=== PATIENT | male | born 1965 | race Caucasian/White ===

== ENCOUNTER 2020-02-05 16:19 | Emergency (ER) | payer BC, SELFPAY ==
[2020-02-05 16:34] VITALS: BP 156/81; PULSE 101; RESP 20; TEMP 36.9; O2SAT 97
--- NOTE | 2020-02-05 16:48 | ED.URI ---
HPI - URI/Sore Throat General Chief Complaint: Upper Respiratory Infection Stated Complaint: cough Time Seen by Provider: 02/05/20 16:38 Source: patient and RN notes reviewed Mode of arrival: ambulatory Limitations: no limitations History of Present Illness HPI Narrative: Patient presents today with a 5-week history of cough. Reports initially he had cold symptoms such as congestion, rhinorrhea. All of his other cold symptoms have resolved, but the cough persists. He occasionally will cough up mucus. Denies shortness of breath. He has been taking Vicks at home with some relief. He has also tried Robitussin without relief. No history of asthma or COPD. He is a non-smoker. MD elicited complaint: cough Related Data Allergies Allergy/AdvReac Type Severity Reaction Status Date / Time Penicillins Allergy Mild Verified 12/09/12 10:48 Review of Systems Review of Systems: Narrative: CONSTITUTIONAL: Denies body aches, fever, chills, or sweats. EYES: Denies visual changes, redness, or discharge. ENT: Denies rhinorrhea, congestion, sore throat, or otalgia. CARDIOVASCULAR: Denies chest pain, palpitations, or edema. RESPIRATORY: Denies dyspnea.+ Cough GASTROINTESTINAL: Denies abdominal pain, nausea, vomiting, or diarrhea. GENITOURINARY: Denies dysuria or hematuria. SKIN: Denies rash, itching, or wounds. MUSCULOSKELETAL: Denies back pain, joint pain, or myalgia. NEUROLOGIC: Denies headache, numbness, tingling, or weakness. PSYCH: Denies depression or anxiety. PMFSH Social History Social History Gender identity (if verbalized by the patient): Male Comments At time of signature, I have reviewed and agree with nursing past medical, surgical, social and family history unless otherwise noted. Please see nursing chart for further information. There is no relevant family history pertinent to the presenting complaint Exam Narrative: Exam Narrative: GENERAL: Well-appearing, well-nourished, and in no acute distress. HEAD: Normocephalic, atraumatic. EYES: EOMI. No redness or drainage. Conjunctivae normal. ENT: Mucous membranes pink and moist. Nares clear. No rhinorrhea. TMs normal bilaterally. Throat normal. Uvula midline. NECK: Normal AROM. Supple. No lymphadenopathy. CHEST: No respiratory distress. Clear to auscultation. HEART: Regular rate and rhythm. No murmur appreciated. Normal peripheral pulses. EXTREMITIES: Normal range of motion. No edema. SKIN: Warm, dry, no rash. NEURO: No focal deficits. Alert and oriented x3. Gait steady. PSYCH: Normal affect. No signs of depression or anxiety. Course Vital Signs Vital signs: Vital Signs Temperature 98.5 F 02/05/20 16:34 Pulse Rate 101 H 02/05/20 16:34 Respiratory Rate 20 02/05/20 16:34 Blood Pressure 156/81 H 02/05/20 16:34 Pulse Oximetry 97 02/05/20 16:34 Temperature 98.5 F 02/05/20 16:34 Pulse Rate 101 H 02/05/20 16:34 Respiratory Rate 20 02/05/20 16:34 Blood Pressure 156/81 H 02/05/20 16:34 Pulse Oximetry 97 02/05/20 16:34 Reviewed. Pt has been instructed to follow up with his PCP regarding his elevated blood pressure today. MDM - URI/Sore Throat Differential Diagnosis Differential diagnosis: Likely upper respiratory infection, viral infection and bronchitis Critical Care Time Critical Care Time Critical Care Time: No Discharge Plan Discharge Clinical Impression: Bronchitis Patient Disposition: Home, Self-Care Condition: Stable Instructions: Acute Bronchitis (ED) Additional Instructions: Your symptoms are likely due to bronchitis. Please take the prednisone and Cheratussin as directed. Do not drive within 6 hours of taking the Cheratussin as it can make you drowsy. Wait till tomorrow morning to start the prednisone as it can keep you awake at night. Follow-up with your PCP in 1 week if symptoms are not improving. Your blood pressure was elevated above 120/80 today at Urgent Care. This puts you above the thre
== END 2020-02-05 16:53 | disposition home or self-care (01) ==
PROVIDERS: Emergency Provider Nurse Practitioner
DX: J40 Bronchitis, not specified as acute or chronic (principal)
CPT/HCPCS: 99213; G0463

== ENCOUNTER 2020-05-26 15:20 | Outpatient (CLI) | payer BC, SELFPAY ==
--- NOTE | ~2020-05-26 | XR_ITS ---
EXAMINATION: XR chest 2V 05/26/2020 15:39 INDICATION: Cough for several months PROCEDURE: 2 view chest COMPARISON: No prior studies FINDINGS: The lungs are clear. The cardiomediastinal silhouette is within normal limits. There are no pleural effusions. There is no pneumothorax suspected. IMPRESSION: 1: NO ACUTE CARDIOPULMONARY DISEASE. Reviewed, dictated and finalized at location A.
== END 2020-05-26 15:21 | disposition home or self-care (01) ==
LOC: ANHIMG 15:23
PROVIDERS: PCP Family Medicine; Visit Provider Family Medicine
DX: R05 Cough (principal)
CPT/HCPCS: 71046

== ENCOUNTER 2020-06-16 01:18 | Outpatient (CLI) | payer BC, SELFPAY ==
[2020-06-16 19:25] LABS: SARS-CoV-2 RNA PCR Negative
== END 2020-06-16 01:19 | disposition home or self-care (01) ==
LOC: ANHCOVIDDT 01:18
PROVIDERS: PCP Family Medicine; Visit Provider Internal Medicine Gastroenterology
DX: Z01.812 Encounter for preprocedural laboratory examination (principal); Z11.59 Encounter for screening for other viral diseases
CPT/HCPCS: 87635; C9803; U0003

== ENCOUNTER 2020-06-18 01:38 | Day surgery (SDC) | payer BC, SELFPAY ==
[2020-06-10 14:22] VITALS: BMI 31.5
--- NOTE | 2020-06-18 06:50 | WPDANESEPPF ---
Anes - Initial Pre Proc Eval Procedure: Operation Date: 06/18/20 08:00 Proposed Procedures p Screening Colonoscopy - Magdaleno Duncan MD Date/Time: 06/18/20 06:50 Surgeon: Magdaleno Duncan MD Pre Op Diagnosis: neoplasm screening, hx of polyps Patient Data Age: 55 Gender: M Height: 5 ft 8 in Weight: 94 kg Allergies Allergy/AdvReac Type Severity Reaction Status Date / Time Penicillins Allergy Mild Unknown Verified 06/18/20 06:44 Home Medications Medication Instructions Recorded Confirmed Type fluticasone 250 mcg-salmeterol 50 1 inhalation INHALATION BID #60 05/27/20 06/18/20 Rx mcg/dose blistr powdr for each inhalation Patient hx anesthesia problems: none Family hx anesthesia problems: none PMFSH Past Medical History Medical History GERD (gastroesophageal reflux disease) Family History Family History Son Asthma Mother Hypertension Father Diabetes mellitus Heart disease Social History Social History Smoking status: Never smoker Alcohol intake: current Drinks per week: 1 Substance use: never Substance use type: does not use Gender identity (if verbalized by the patient): Male Anes - Eval Final PreProcedure Day of Procedure 06/18/20 06:50 Patient weight: obese Heart: regular rate and rhythm Lungs: clear to auscultation Airway: Mallampati scale class II Neurological: alert and oriented Last oral intake: >/= 8 hours ASA classification: II Emergent: no Anesthetic plan: proceed Anesthesia type and monitoring: general GIVS and standard monitoring Informed Consent: The patient's anesthetic plan and its attendant risks and benefits were discussed with the patient/family/POA. Questions were solicited and answers provided to the satisfaction of the patient/family/POA.
[2020-06-18] MEDS: LACTATED RINGERS 1,000 ML 150 ML IV CONT (06:59)
--- NOTE | 2020-06-18 07:01 | PM.HPGS ---
History of Present Illness History of Present Illness Consent: Risks, benefits, and alternatives have been discussed and questions answered. Patient agrees to proceed with procedure. Chief complaint: neoplasm screening, hx of polyps Narrative: Devon Lang is a 55 year old W male referred for screening colonoscopy. patient states he had a colonoscopy 5 years ago at another institution at polyp was removed at that time. No family history of colon polyps or colon cancer. Patient is asymptomatic. [facility] Past Medical History Medical History GERD (gastroesophageal reflux disease) Family History Family History Son Asthma Mother Hypertension Father Diabetes mellitus Heart disease Social History Social History Smoking status: Never smoker Alcohol intake: current Drinks per week: 1 Substance use: never Substance use type: does not use Gender identity (if verbalized by the patient): Male Meds Home Medications and Allergies Home Medications Medication Instructions Recorded Confirmed Type fluticasone 250 mcg-salmeterol 50 1 inhalation INHALATION BID #60 05/27/20 06/18/20 Rx mcg/dose blistr powdr for each inhalation Allergies Allergy/AdvReac Type Severity Reaction Status Date / Time Penicillins Allergy Mild Unknown Verified 06/18/20 06:44 Exam Const: Orientation/consciousness: patient oriented x3 Resp: Auscultation: clear to auscultation bilaterally Cardio: Rate: regular rate Rhythm: regular rhythm Heart sounds: no murmurs GI: GI Palp: Yes Soft to palpation, No Tenderness to palpation present (GI), Yes No hepatosplenomegaly present and No Palpable mass present Auscultation: normal bowel sounds Neuro: General: patient oriented x3 and no focal motor deficits Extrem: General: no pedal edema Assessment and Plan Additional Plan Screening colonoscopy secondary history of colonic polyps
[2020-06-18] MEDS: SIMETHICONE ORAL SUSPENSION 20 MG/0.3 ML 30 ML BOTTLE 0.6 ML IRRIGATION (08:04)
[2020-06-18 08:12] VITALS: BP 121/86; PULSE 88; RESP 20; O2SAT 96
[2020-06-18 08:22] VITALS: BP 117/85; PULSE 89; RESP 20; O2SAT 96
[2020-06-18 08:32] VITALS: BP 145/99; PULSE 76; RESP 20; O2SAT 99
== END 2020-06-18 08:44 | disposition home or self-care (01) ==
PROVIDERS: PCP Family Medicine; Visit Provider Internal Medicine Gastroenterology
PROC: 0DJD8ZZ Inspection of Lower Intestinal Tract, Via Natural or Artificial Opening Endoscopic (ICD-10-PCS; CPT 45378; principal; 2020-06-18 08:00)
DX: Z12.11 Encounter for screening for malignant neoplasm of colon (principal); K57.30 Diverticulosis of large intestine without perforation or abscess without bleeding; K64.8 Other hemorrhoids; Z86.010 Personal history of colon polyps; E66.9 Obesity, unspecified; Z68.32 Body mass index [BMI] 32.0-32.9, adult
CPT/HCPCS: 45378; J2704; J7120

== ENCOUNTER 2020-06-30 10:25 | Outpatient (CLI) | payer BC, SELFPAY ==
--- NOTE | ~2020-06-30 | US_ITS ---
EXAMINATION: US right upper quadrant DATE: 06/30/2020 11:05 INDICATION: Abnormal levels of other serum enzymes TECHNIQUE: Multiple grayscale and Doppler ultrasound images of the abdomen were obtained. COMPARISON: None available FINDINGS: Bowel gas obscures visualization of the pancreas. The visualized portions of the pancreas a re unremarkable. The liver is normal with normal echogenicity and echotexture. No surface nodularity. Normal hepatopetal flow in the main portal vein. The gallbladder is normal with no abnormal wall thi ckening, pericholecystic fluid or stones. The normal common bile duct measures 5 mm. There was no son ographic Mei sign. IMPRESSION: 1. No sonographic correlate for the patient's symptoms. Reviewed, dictated and finalized at location A.
== END 2020-06-30 10:26 | disposition home or self-care (01) ==
PROVIDERS: PCP Family Medicine; Visit Provider Physician Assistant
DX: R74.8 Abnormal levels of other serum enzymes (principal)
CPT/HCPCS: 76705

== ENCOUNTER 2024-02-10 08:02 | Emergency (ER) | payer BC, SELFPAY ==
--- NOTE | ~2024-02-10 | XR_ITS ---
EXAMINATION: XR thoracic spine 3V DATE: 02/10/2024 08:34 INDICATION: Mid to upper back pain post fall TECHNIQUE: One AP, lateral and lateral swimmer's views of the thoracic spine were obtained. COMPARISON: None. FINDINGS: 6 degrees upper thoracic levocurvature and 3 mm lower thoracic dextrocurvature. Sagittal alignment is normal. Vertebral body heights are normal. Disc heights are normal. Visualized portion of the lungs are clear. Heart size is normal. IMPRESSION: 1. Negligible S-shaped curvature of the thoracic spine. No evident acute osseous abnormality. Reviewed, dictated and finalized at location A. IMPRESSION: 1. Negligible S-shaped curvature of the thoracic spine. No evident acute osseou s abnormality.
[2024-02-10 08:23] VITALS: BP 138/96; PULSE 72; RESP 16; TEMP 36.5; O2SAT 99
--- NOTE | 2024-02-14 08:19 | ED.BACK ---
HPI - Back Pain/Injury General Chief Complaint: Back Pain/Injury Stated Complaint: middle back rg; previous fall Time Seen by Provider: 02/10/24 08:16 Source: patient Mode of arrival: ambulatory Limitations: no limitations History of Present Illness HPI Narrative: 58 yo M presents with c/o pain to middle of back. States he fell over a month about after slipping on ice. Feet went out from under him and landed flat on back. Denies hitting head. States his whole back was sore after fall. He iced and applied heat and took ibuprofen and pain got better except to one spot in middle of back. he states he works out, is active and has been going to work so pain is not that bad but wants to make sure no fracture since this one area is still bothering him. He also states if he puts pressure against middle of back that pain is relieved. Ambulatory with steady gait. No radiation of pain. Denies numbness, tingling or weakness to extremitiies. has appt with his PCP next month. All systems reviewed and negative except as noted above. Related Data Home Medications Medication Instructions Recorded Confirmed No Home Medications 02/10/24 02/10/24 Allergies Allergy/AdvReac Type Severity Reaction Status Date / Time Penicillins Allergy Mild Unknown Verified 02/10/24 08:21 Review of Systems Review of Systems: CONSTITUTIONAL: Denies fever, chills, or sweats. EYES: Denies visual changes, redness, or discharge. ENT: Denies rhinorrhea, congestion, sore throat, or otalgia. CARDIOVASCULAR: Denies chest pain, palpitations, or edema. RESPIRATORY: Denies cough or dyspnea. GASTROINTESTINAL: Denies abdominal pain, nausea, vomiting, or diarrhea. GENITOURINARY: Denies dysuria or hematuria. SKIN: Denies rash or itching. MUSCULOSKELETAL: Reports pain to middle of back. Denies joint pain, or myalgia. NEUROLOGIC: Denies headache, numbness, or weakness. PSYCHIATRIC: Denies anxiety or depression. All other systems reviewed are negative, except as documented in HPI. [facility] Past Medical History Medical History GERD (gastroesophageal reflux disease) HLD (hyperlipidemia) Impaired fasting glucose Family History Family History Son Asthma Mother Hypertension Alzheimer disease Father Diabetes mellitus Heart disease Social History Social History Smoking status: Never smoker Second hand tobacco smoke exposure: No Alcohol intake: current Drinks per week: 1 Substance use: never Substance use type: does not use Living arrangements: with family Occupation/Education: occupation Gender identity (if verbalized by the patient): Male Sexual Orientation (if Verbalized by the Patient): Straight or Heterosexual Spiritual care concerns: No Comments At time of signature, agree with nursing past medical, surgical, social and family history. There is no relevant family history pertinent to the presenting complaint. Exam Narrative: GENERAL: This is a well-nourished, well-developed patient, in no apparent distress. HEAD: normocephalic, atraumatic. EYES: PERRL. Sclera clear/white. Vision is grossly intact. EARS: External ears normal NOSE: External nose normal NECK: Neck supple, non-tender without lymphadenopathy, masses or thyromegaly. CARDIOVASCULAR: Regular rate and rhythm without murmurs, gallops, or rubs. RESPIRATORY: Clear to auscultation. Breath sounds equal bilaterally. No wheezes, rales, or rhonchi. SKIN: warm, Dry, intact with no suspicious lesions or rash, good texture and turgor. NEURO: awake, alert, and oriented to person, place and time. There were no obvious focal neurologic abnormalities. EXTREMITIES: No joint tenderness, effusion, or edema noted. BACK: no deformity. tenderness T6-T8. no swelling. Course Course Level of Care: Expres
== END 2024-02-10 08:55 | disposition home or self-care (01) ==
PROVIDERS: Emergency Provider Nurse Practitioner Family; PCP Family Medicine
DX: M54.6 Pain in thoracic spine (principal); K21.9 Gastro-esophageal reflux disease without esophagitis; E78.5 Hyperlipidemia, unspecified; R73.01 Impaired fasting glucose
CPT/HCPCS: 72072; 99213; G0463

== ENCOUNTER 2025-04-18 09:08 | Outpatient (CLI) | payer BC, SELFPAY ==
--- NOTE | ~2025-04-18 | XR_ITS ---
Left Shoulder Technique: AP and axillary views were obtained. Clinical History: Pain Findings: No fracture or dislocation is seen. Osseous alignment is anatomic. The glenohumeral and acr omioclavicular joint spaces are preserved. Soft tissues are unremarkable. Impression: Unremarkable left shoulder radiographs. Reviewed, dictated and finalized at [facility]. Impression: Unremarkable left shoulder radiographs.
== END 2025-04-18 09:09 | disposition home or self-care (01) ==
PROVIDERS: PCP Family Medicine; Visit Provider Physician Assistant Medical
DX: M25.512 Pain in left shoulder (principal)
CPT/HCPCS: 73030

== ENCOUNTER 2025-05-29 14:30 | Outpatient (RCR) | payer BC, SELFPAY ==
--- NOTE | 2025-04-28 10:57 | OPREHPOC ---
Outpatient Therapy Plan of Care This is a Multidisciplinary Plan of Care that may contain components documented by all disciplines (PT, OT, and ST.) PT Problem 1 PT Problem #1 Knowledge Deficit PT Goal 1 Goal / Goal Update 1* independent with HEP 2* pt demonstrate correct shoulder posture with exercises Target Visit 8 PT Problem 2 PT Problem #2 Pain PT Goal 1 Goal / Goal Update 1* pt report pain rating at worst of L shoulder 10 2* pt report times of NO pain in L shoulder Target Visit 8 PT Problem 3 PT Problem #3 Impaired Flexibility PT Goal 1 Goal / Goal Update increase L shoulder ROM/flexibility, to improve use of L arm for overhead activities at home and self care in standing active 1* flexion to 140' 2* abduction to 140' 3* IR- reaching behind back, fingers to distal scapula Target Visit 8 PT Problem 4 PT Problem #4 Impaired Strength PT Goal 1 Goal / Goal Update increase scapular strength to 4+/5, to improve stability to shoulder and posture of GH joint Target Visit 8
--- NOTE | 2025-04-28 10:57 | PTOPEVAL1 ---
Assessment and note entered by Maya Gruber PT Evaluation Information Assessment Status Evaluation ICD-10 Condition Codes (PT) Pain in left shoulder M25.512 Onset 6 months ago Subjective Information have had problems for the past 3 years with shoulder, worse and decided to talk with dr about it; no trauma to arm; was having more pain with more fitness and weight work outs; able to do things but hurts x ray was negative; R hand dominant; activity: retired; can do all home tasks, with more pain GOAL: get the motion back of my shoulder and return to lifting weights Reported Pain Level Pain Score Self Report Additional Pain Score Comments pain range in the past week: 1-5/10; achy in shoulder; increase pain: lifting weights, lie on shoulder decrease pain: rest, ibuprofen PRN with sleeping: no awakening due to shoulder pain Assessment PT Clinical Summary Devon has the diagnosis of L shoulder pain. He is R hand dominant and self assessment with Quick DASH rating of 14% limitation in activity level. Reports gradual increase in pain and less flexibility of shoulder, with doing more fitness exercises and lifting weights. He is retired and active lifestyle. X ray of the shoulder is negative. With the evaluation: he has decreased ROM and increase pain with all L shoulder motions; slight tenderness over anterior GH joint; posture with rounded shoulders and forward head. Skilled PT services are indicated for treatment of L shoulder impingement syndrome: modalities to decrease pain, therapeutic exercises to increase scapular strength and posture with education for HEP and posture/body mechanics. Plan of Care Interventions Electrical Stimulation,Hot Pack/Cold Pack,Manual Therapy,Neuro Re-education,Patient/Caregiver Education,Therapeutic Activities,Therapeutic Exercise,Ultrasound,Other Other Interventions taping, PT Services Indicated Yes Treatment Frequency and 1-2x/wk for 8 visits Duration These treatments will address the objective and functional deficits as defined above. The patient will be advanced safely and appropriately in order for the patient to progress towards his/her prior level of function. Additional exercises will be introduced and as well as a comprehensive home exercise program upon discharge, if needed, ?to ensure carryover of functional gains achieved in the clinic. This treatment plan has been reviewed and agreement upon by the patient.
--- NOTE | 2025-05-29 15:12 | OPREHPOC ---
Outpatient Therapy Plan of Care This is a Multidisciplinary Plan of Care that may contain components documented by all disciplines (PT, OT, and ST.) PT Problem 1 PT Problem #1 Knowledge Deficit PT Goal 1 Goal / Goal Update 1* independent with HEP 2* pt demonstrate correct shoulder posture with exercises 05-29-25 d/c goals met Target Visit 8 Progress Met PT Problem 2 PT Problem #2 Pain PT Goal 1 Goal / Goal Update 1* pt report pain rating at worst of L shoulder 2* pt report times of NO pain in L shoulder 05-29-25 d/c goals met Target Visit 8 Progress Met PT Problem 3 PT Problem #3 Impaired Flexibility PT Goal 1 Goal / Goal Update increase L shoulder ROM/flexibility, to improve use of L arm for overhead activities at home and self care in standing active 1* flexion to 140' 2* abduction to 140' 3* IR- reaching behind back, fingers to distal scapula 05-29-25 d/c goals met Target Visit 8 Progress Met PT Problem 4 PT Problem #4 Impaired Strength PT Goal 1 Goal / Goal Update increase scapular strength to 4+/5, to improve stability to shoulder and posture of GH joint 05-29-25 d/c goals met Target Visit 8
--- NOTE | 2025-05-29 15:12 | PTOPDC ---
Assessment and note entered by Maya Gruber, PT Evaluation Information Assessment Status Discharge ICD-10 Condition Codes (PT) Pain in left shoulder M25.512 Onset 6 months ago Subjective Information shoulder has more motion in it; have been doing the exercises at home; ready to be finished with therapy. have been watching my posture and avoided doing resistance exercises of bench press and overhead pull downs; Reported Pain Level Pain Score Self Report Additional Pain Score Comments pain range in the past week: 0-3/10 with daily activities at home increase pain: with resisted exercises at gym lifting overhead decrease pain: rest, ibuprofen PRN can lie on L side, Assessment PT Clinical Summary Devon has received 8 PT sessions. He has improved in all areas, today reports: pain range of 0-3/10; self assessment with Quick DASH rating of 9% limitation in activity level; increased ROM and strength of L shoulder and education completed for HEP, posture, body mechanics and pain management, to avoid impingement of shoulder. The goals were achieved. Discharge PT and he is to continue with the HEP and monitor activity to assist managing his pain. Plan of Care PT Services Indicated No
== END 2025-05-29 16:42 | disposition home or self-care (01) ==
LOC: ANHPT 14:30
PROVIDERS: PCP Family Medicine; Visit Provider Physician Assistant Medical
DX: M25.512 Pain in left shoulder (principal)
CPT/HCPCS: 97110; 97140; 97161; 97530

== ENCOUNTER 2025-09-25 02:15 | Day surgery (SDC) | payer BC, SELFPAY ==
[2025-09-17 15:25] VITALS: BMI 28.1
[2025-09-25 07:40] VITALS: BP 145/87; PULSE 76; RESP 18; TEMP 36.1; O2SAT 98; BMI 28.3
[2025-09-25] MEDS: LACTATED RINGERS 1,000 ML 150 ML IV CONT (07:51)
--- NOTE | 2025-09-25 08:13 | WPDANESEPPF ---
Anes - Initial Pre Proc Eval Procedure: Operation Date: 09/25/25 09:00 Proposed Procedures p Screening Colonoscopy - Titi Johnson MD Date/Time: 09/25/25 08:13 Surgeon: Titi Johnson MD Pre Op Diagnosis: Screening Patient Data Age: 60 Gender: M Height: 1.73 m Weight: 84.7 kg Last Vital Signs Temp 97 F L 09/25/25 07:40 Pulse 76 09/25/25 07:40 Resp 18 09/25/25 07:40 BP 145/87 H 09/25/25 07:40 Pulse Ox 98 09/25/25 07:40 O2 Del Method Room Air 09/25/25 07:40 Allergies Allergy/AdvReac Type Severity Reaction Status Date / Time Penicillins Allergy Mild Unknown Verified 09/25/25 07:39 Home Medications ?Medication ?Instructions ?Recorded ?Confirmed ?Type rosuvastatin 20 mg tablet (Crestor) 20 mg PO DAILY #90 tabs 07/11/25 09/25/25 Rx Patient hx anesthesia problems: none Family hx anesthesia problems: none Results Review: All pre-operative results and documents have been reviewed as part of the pre-operative evaluation. [facility] Past Medical History Medical History HLD (hyperlipidemia) Impaired fasting glucose GERD (gastroesophageal reflux disease) Family History Family History Son Asthma Mother Hypertension Alzheimer disease Father Diabetes mellitus Heart disease Social History Social History Smoking status: Never smoker Second hand tobacco smoke exposure: No Alcohol intake: current Drinks per week: 1 Substance use: never Substance use type: does not use Living arrangements: with family Occupation/Education: occupation Gender identity (if verbalized by the patient): Male Sexual Orientation (if Verbalized by the Patient): Straight or Heterosexual Spiritual care concerns: No Anes - Eval Final PreProcedure Day of Procedure 09/25/25 08:13 Patient weight: normal Lungs: normal air movement Airway: Mallampati scale class II Neurological: alert and oriented Last oral intake: >/= 8 hours ASA classification: II Emergent: no Anesthetic plan: proceed Anesthesia type and monitoring: general GIVS and standard monitoring Results Review: All pre-operative results and documents have been reviewed as part of the pre-operative evaluation. Hyperlipidemia, very active w biking, no cp or sob. Informed Consent: The patient's anesthetic plan and its attendant risks and benefits were discussed with the patient/family/POA. Questions were solicited and answers provided to the satisfaction of the patient/family/POA.
--- NOTE | 2025-09-25 08:45 | PM.IMHP ---
H&P: HPI History of Present Illness Date/Time: 09/25/25 08:45 Chief Complaint: History of colon polyps Narrative: The patient has a history of colonic polyps, the last colonoscopy was Review of Systems Review of Systems: All systems reviewed & are unremarkable except as noted in HPI and below PMFSH Past Medical History Medical History HLD (hyperlipidemia) Impaired fasting glucose GERD (gastroesophageal reflux disease) Family History Family History Son Asthma Mother Hypertension Alzheimer disease Father Diabetes mellitus Heart disease Social History Social History Smoking status: Never smoker Second hand tobacco smoke exposure: No Alcohol intake: current Drinks per week: 1 Substance use: never Substance use type: does not use Living arrangements: with family Occupation/Education: occupation Gender identity (if verbalized by the patient): Male Sexual Orientation (if Verbalized by the Patient): Straight or Heterosexual Spiritual care concerns: No Meds Home Medications and Allergies Home Medications ?Medication ?Instructions ?Recorded ?Confirmed ?Type rosuvastatin 20 mg tablet (Crestor) 20 mg PO DAILY #90 tabs 07/11/25 09/25/25 Rx Allergies Allergy/AdvReac Type Severity Reaction Status Date / Time Penicillins Allergy Mild Unknown Verified 09/25/25 07:39 Vital Signs Vital Signs - 24 hr 09/25/25 07:40 Temperature 97 F L Pulse Rate 76 Respiratory Rate 18 Blood Pressure 145/87 H Pulse Oximetry 98 Oxygen Delivery Room Air Exam Const: General: cooperative and healthy appearing Resp: Effort & Inspection: normal respiratory effort and able to speak in complete sentences Auscultation: clear to auscultation bilaterally Cardio: Rate: regular rate Rhythm: regular rhythm GI: Inspection: normal to inspection GI Palp: No No hepatosplenomegaly present Auscultation: normal bowel sounds Rectal Exam: deferred Skin: General skin exam: normal color Psych: Appearance: grossly normal Mental Status: mental status grossly normal Assessment and Plan Assessment and plan (1) History of colonic polyps: Code(s): Z86.0100 - Personal history of colon polyps, unspecified Status: Acute Assessment and Plan: The patient is deemed a good candidate for the procedure. Consent signed. Will proceed.
[2025-09-25 09:08] VITALS: BP 121/78; PULSE 87; RESP 20; O2SAT 94
[2025-09-25 09:18] VITALS: BP 123/82; PULSE 84; RESP 18; O2SAT 97
[2025-09-25 09:28] VITALS: BP 126/78; PULSE 71; RESP 17; O2SAT 96
== END 2025-09-25 09:32 | disposition home or self-care (01) ==
PROVIDERS: PCP Family Medicine; Referring Provider Physician Assistant Medical; Visit Provider Internal Medicine Gastroenterology
PROC: 0DJD8ZZ Inspection of Lower Intestinal Tract, Via Natural or Artificial Opening Endoscopic (ICD-10-PCS; CPT 45378; principal; 2025-09-25 09:00)
DX: Z12.11 Encounter for screening for malignant neoplasm of colon (principal); K64.8 Other hemorrhoids; K57.30 Diverticulosis of large intestine without perforation or abscess without bleeding; E78.5 Hyperlipidemia, unspecified; K21.9 Gastro-esophageal reflux disease without esophagitis; Z86.0100 Personal history of colon polyps, unspecified; Z82.49 Family history of ischemic heart disease and other diseases of the circulatory system
CPT/HCPCS: 45378; J2003; J2704; J7120